=== PATIENT | female | born 1995 | race Caucasian/White ===

== ENCOUNTER → 2016-10-27 | Outpatient (CLI) | payer OTHER | LOC: M SMT 11:56 | PROVIDERS: ATTEND Advanced Practice Midwife | DX: O26.851 Spotting complicating pregnancy, first trimester (principal); Z3A.00 Weeks of gestation of pregnancy not specified ==

== ENCOUNTER → 2016-11-03 | Outpatient (CLI) | payer OTHER | LOC: M SMT 09:19 | PROVIDERS: ATTEND Advanced Practice Midwife | DX: O26.851 Spotting complicating pregnancy, first trimester (principal) ==

== ENCOUNTER 2017-12-10 10:30 | Emergency (ER) | payer OTHER ==
[2017-12-10] MEDS: ACETAMINOPHEN TAB 650MG DOSE (2X325MG) PO (11:37)
== END 2017-12-10 12:27 | disposition home or self-care (01) ==
LOC: M ED 10:30
DX: O99.89 Other specified diseases and conditions complicating pregnancy, childbirth and the puerperium (principal); J02.8 Acute pharyngitis due to other specified organisms; R51 Headache; Z3A.18 18 weeks gestation of pregnancy
CPT/HCPCS: 87880

== ENCOUNTER 2018-02-03 14:01 | Outpatient (CLI) | payer OTHER ==
[2018-02-03] MEDS: LR 1,000 ML IV ×2 (15:05→16:03)
[2018-02-03] MEDS: CYCLOBENZAPRINE 10 MG TAB PO (16:42)
== END 2018-02-03 17:19 | disposition home or self-care (01) ==
LOC: M LDO 14:01
DX: O26.892 Other specified pregnancy related conditions, second trimester (principal); R10.30 Lower abdominal pain, unspecified; Z3A.26 26 weeks gestation of pregnancy
CPT/HCPCS: G0463

== ENCOUNTER 2018-05-16 07:20 | Inpatient (IN) | payer OTHER ==
[~2018-05-16] VITALS: Ht 152.4 cm; Wt 85.3 kg
[2018-05-16] VITALS (7 sets, daily range): BP systolic 106–126; BP diastolic 54–62
[~2018-05-16 07:20] MED LIST: ASCO25TA PO; FERR325T3 PO; PRENTAB9 PO
[2018-05-16] MEDS ORDERED: LACTATED RINGER'S 1000 ML IV STA (08:24)
[2018-05-16] MEDS ORDERED: LR 1,000 ML IV SCH (08:24)
--- NOTE | 2018-05-16 08:33 | HPEPDOC ---
Obstetrical History & Physical General Date of Admission May 16, 2018 at 07:24 History of Present Illness 22 y/o at 41+0 for scheduled IOL but also ashley painfully. No LOF /VB. 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 H/O blood transfusion in , 2 units (unprovoked by surgery, etc) Chief Complaint: Contractions, term Information Provided By: Patient Care Care: Good Care Dating Final EDC by: LMP, 2nd trimester (US) (15 wks) Past Medical History Past Obstetrical History : Past Obstetrical History: Multigravida Type of Delivery: Spontaneous Vaginal Del. (2015 7 lb 7 oz) FINAL INSPECTOR PAPER History: Spontaneous (x2) Past Medical History Medical History beta thal minor Surgical History: [place] teeth Family History Significant Family History: No pertinent family hx Social History Marital Status: Family situation: Spouse/partner home Psychosocial History: No pertinent psych hx * Smoker: non-smoker Alcohol: Denies Drugs: denies Abuse Violence Screening Have you been hit/kicked/slapp: No Have you been sexually assault: No Imunizations Tdap status: current Influenza Status: current Allergies Coded Allergies: No Known Allergies (Unverified , 05/16/18) Medications Scheduled Multivitamins/ ( 27-0.8 mg) 1 Tab Tab, 1 TAB PO DAILY Physical Examination Physical Examination GENERAL: Alert and oriented times three. ABDOMEN: Gravid and non-tender to touch. FETUS: Is vertex (VTX) by sterile vaginal examination (SVE), 4-5/90/-1/BBOW EXTREMITIES: No edema. Laboratory Data 24H LABS Laboratory Tests 2 05/16/18 07:39: Serology Scanned Report Hepatitis B Testing Urine Culture: No Growth Pertinent Laboratoy Data Blood Type: A+ RBC Antibody Screen: Negative HIV: Negative Hepatitis B: Negative Hepatitis C: Unknown Rapid Plasma Reagin: Nonreactive Rubella: Immune Varicella: Immune Chlamydia/Gonorrhea: Negative Group B Streptococcus: Negative Quad Screen Test: Negative Cystic Fibrosis: Unknown Anatomy Ultrasound Placenta Location: Posterior Normal Anatomy: Yes Placenta Previa: No Assessment Variability: Moderate Accelerations: Positive Decelerations: Variable (x1) Tocometer Contractions: Yes Frequency: regular Duration: greater than 60 seconds Strength: palpated as moderate Assessment/Plan Assessment 41+0, IOL scheduled for today, but happily in active labor. Plan Admit and orient. Cut In Station Operator and consent. Diet: clears Group B Streptococcus (GBS) neg Labs and intravenous (IV) per unit protocol Lactated Ringers (LR): Bolus 1000 mL prior to epidural, then at 125 mL/hr. Anticipate normal spontaneous delivery () C-S as appropriate. Sessions MD HURST,HAILE Caldera MD May 16, 2018 08:33
[2018-05-16 08:35] LABS: HEMATOCRIT 27.6 % (36.0-47.0); HEMOGLOBIN 8.1 g/dl (12.0-15.5); MEAN CORPUSCULAR HEMOGLOBIN 16.6 pg (27.0-33.0); MEAN CORPUSCULAR HGB CONC 29.3 g/dl (32.0-36.5); MEAN CORPUSCULAR VOLUME 56.7 fl (80.0-96.0); PLATELET COUNT, AUTOMATED 310 10^3/uL (150-450); RED BLOOD COUNT 4.87 10^6/uL (4.00-5.40); WHITE BLOOD COUNT 6.2 10^3/uL (4.0-10.0)
[2018-05-16] MEDS ORDERED: FENTANYL 2MCG/ML ROPIVACAINE 0.2% IN 0.9% NACL 100ML IVBAG As Ordered ONE (08:49)
[2018-05-16] MEDS ORDERED: OXYTOCIN 30 UNITS IN 0.9% NaCl 500ML IV BAG (J2590) As Ordered ONE (09:09)
[2018-05-16] MEDS ORDERED: RHOGAM 300 MCG (1500 IU) INJ (J2790) IM SCH (09:45)
[2018-05-16] MEDS ORDERED: DIBUCAINE 1% OINTMENT 30GM TOP PRN (09:45)
[2018-05-16] MEDS ORDERED: PHYTONADIONE 1 MG/0.5 ML SYRINGE (J3430) IM ONE (09:45)
[2018-05-16] MEDS ORDERED: MEASLES,MUMPS,RUBELLA VACCINE INJ (MMR-II) (90707) SC SCH (09:45)
[2018-05-16] MEDS ORDERED: OXYTOCIN INJ 10 UNITS/ML VIAL (J2590) IM ONE (09:45)
[2018-05-16] MEDS ORDERED: ERYTHROMYCIN OPHTH OINT OU ONE (09:45)
[2018-05-16] MEDS ORDERED: DOCUSATE SODIUM 100 MG CAP PO PRN (09:45)
[2018-05-16] MEDS ORDERED: ACETAMINOPHEN 500 MG TAB PO PRN (09:45)
[2018-05-16] MEDS ORDERED: HEPATITIS B VAC *BIRTH DOSE ONLY*(RECOMBIVAX HB) 5MCG/0.5ML VL/SYR IM ONE (09:45)
--- NOTE | 2018-05-16 09:46 | DNPDOC ---
[facility] Delivery Note Delivery Note DATE OF DELIVERY: 05/16/18 PREDELIVERY DIAGNOSIS: 41w0d gestation and labor. POST DELIVERY DIAGNOSIS: Delivered. PROCEDURE: Spontaneous vaginal delivery LIBRARY SALES CONSULTANT: Dr. Olga Galan MD ANESTHESIA: none ESTIMATED BLOOD LOSS: 200 mL. FINDINGS: 6 pound 3 ounce (2820g) male infant, Score 8/9, nuchal cord times 1 DELIVERY SUMMARY: Alayna is a 22yo [id number] s/p uncomplicated at 41w0d after presenting in labor, delivering at 0921 on 05/16/18. She progressed very quickly and within 2hr, was C/C/0 when she began pushing. Infant's head delivered OA, one loose nuchal cord reduced, head restituted [place]. Left anterior shoulder delivered followed immediately by posterior shoulder and corpus. Infant vigorous, apgars 8/9, placed on maternal abdomen where spontaneous cry was noted. After approx 1 minute, cord was clamped x2 and cut by FOB. With uterine massage and traction on the cord, placenta delivered spontaneously and intact with 3 vessel centrally inserted cord. Bimanual massage performed, 10u IM pitocin given, and fundus was then firm at u-2cm with cessation of bleeding. Inspection of perineum and vagina revealed no lacerations. Mom and infant were doing well when I left the room. MD Angelia Eduardo Katrina D MD May 16, 2018 09:46
[2018-05-16] MEDS: IBUPROFEN 800 MG TAB PO PRN (17:16)
[2018-05-17 06:15] VITALS: BP 122/67
--- NOTE | 2018-05-17 07:42 | IPNPDOC ---
Progress Note Date of Service: May 17, 2018 Day#: 1 Progress Note PPD 1 SUBJECT: Alayna is a 22yo [id number] s/p uncomplicated at 41w0d on 05/16 after presenting in active labor, doing well day # 1. She has been ambulating, voiding spontaneously without issue and tolerating regular diet. Breast feeding without issue. Reports lochia is like a normal period. No f/c/n/v/CP/SOB. OBJECTIVE: VITAL SIGNS: Within normal limits, afebrile. Alert and oriented times three. Abdomen: Fundus firm at U-2. Soft, NTTP. Extremities: no pain with palpation of calves ASSESSMENT: Alayna is a 22yo [id number] s/p uncomplicated at 41w0d on 05/16 after presenting in active labor, doing well day # 1. Vitals within normal limits, afebrile, hemodynamically stable with no evidence of infection. PLAN: 1. Discharge to home today. 2. Tylenol and Motrin for pain. 3. undecided on contraception 4. Routine PP visit in 6 weeks in clinic. 5. Discussed return precautions at length. Dr. Olga Galan MD VS, I&O, 24H, Fishbone Vital Signs/I&O Vital Signs Date Time Temp Pulse Resp B/P (MAP) Pulse Ox O2 Delivery O2 Flow Rate FiO2 05/17/18 06:15 97.9 61 18 122/67 (85) I&O- Last 24 Hours up to 6 AM 05/17/18 06:00 Intake Total 1000 ml Output Total 200 ml Balance 800 ml Laboratory Data 24H LABS Laboratory Tests 2 05/16/18 08:25: Nucleated Red Blood Cells % (auto) 0.0, Syphilis Serology NONREACTIVE CBC/BMP Laboratory Tests 05/16/18 08:25 Red Blood Count 4.87, Mean Corpuscular Volume 56.7 L, Mean Corpuscular Hemoglobin 16.6 L, Mean Corpuscular Hemoglobin Concent 29.3 L, Red Cell Distri bution Width 21.2 H Olga Galan MD May 17, 2018 07:42
[2018-05-17] MEDS ORDERED: PRENATAL VITAMINS CHEWABLE TABLET PO SCH (09:00)
[2018-05-17] MEDS: IBUPROFEN 800 MG TAB PO PRN (09:02)
[2018-05-17] MEDS ORDERED: IBUP-1114 PO (10:33)
[2018-05-17] MEDS ORDERED: MAPA500T2 PO (10:33)
== END 2018-05-17 14:30 | disposition home or self-care (01) | DRG 807 ==
LOC: M LDO 07:20 → M LDI 07:24 → M OBS 15:14
PROVIDERS: ADMIT Obstetrics & Gynecology; ATTEND Obstetrics & Gynecology
PROC: 10E0XZZ Delivery of Products of Conception, External Approach (ICD-10-PCS; principal; 2018-05-16)
DX: O48.0 Post-term pregnancy (principal); Z37.0 Single live birth; Z3A.41 41 weeks gestation of pregnancy; D56.3 Thalassemia minor; O99.02 Anemia complicating childbirth; O69.81X0 Labor and delivery complicated by cord around neck, without compression, not applicable or unspecified; O62.3 Precipitate labor